=== PATIENT | female | born 1940 | race African-American/Black ===

== ENCOUNTER 2019-01-05 04:38 | Emergency (ER) | payer MEDICARE, MEDICAID ==
[2019-01-05] MEDS ORDERED: LORAZEPAM INJ 2 MG/1 ML VIAL IV ONE (08:04)
[2019-01-05 08:32] LABS: HEMATOCRIT 28.7 % (36.0-47.0); HEMOGLOBIN 9.1 g/dL (12.0-15.5); MEAN CORPUSCULAR HEMOGLOBIN 25.2 pg (27.0-33.4); MEAN CORPUSCULAR HGB CONC 31.9 g/dL (32.0-36.0); MEAN CORPUSCULAR VOLUME 79 fl (80-97); PLATELET COUNT 392 10^3/uL (150-450); RED BLOOD COUNT 3.63 10^6/uL (3.72-5.28); RED CELL DISTRIBUTION WIDTH 17.1 % (11.5-14.0); WHITE BLOOD COUNT 7.1 10^3/uL (4.0-10.5)
[2019-01-05 08:50] LABS: APPEARANCE,URINE SLIGHTLY-CLOUDY; BILIRUBIN,URINE NEGATIVE (NEGATIVE); CALCIUM OXALATE CRYSTALS,URINE MODERATE /HPF; COLOR,URINE YELLOW; GLUCOSE, URINE NEGATIVE (NEGATIVE); KETONES,URINE NEGATIVE (NEGATIVE); LEUKOCYTE ESTERASE,URINE NEGATIVE (NEGATIVE); NITRITE,URINE NEGATIVE (NEGATIVE); PROTEIN,URINE 30 mg/dL (NEGATIVE); URINE SPECIFIC GRAVITY 1.017; UROBILINOGEN,URINE NEGATIVE mg/dL (<2.0)
[2019-01-05 08:55] LABS: ALANINE AMINOTRANSFERASE 44 U/L (9-52); ALBUMIN 3.8 g/dL (3.5-5.0); ALKALINE PHOSPHATASE 193 U/L (38-126); ANION GAP 10 (5-19); ASPARTATE AMINO TRANSFERASE 38 U/L (14-36); BILIRUBIN,DIRECT 0.4 mg/dL (0.0-0.4); BILIRUBIN,TOTAL 0.4 mg/dL (0.2-1.3); BLOOD UREA NITROGEN 10 mg/dL (7-20); CALCIUM 9.1 mg/dL (8.4-10.2); CARBON DIOXIDE 25 mmol/L (22-30); CHLORIDE 107 mmol/L (98-107); CREATINE KINASE 146 U/L (30-135); GLUCOSE 97 mg/dL (75-110); LIPASE 25.3 U/L (23-300); POTASSIUM 4.3 mmol/L (3.6-5.0); SODIUM 141.8 mmol/L (137-145); TOTAL PROTEIN 6.5 g/dL (6.3-8.2)
[2019-01-05 09:03] LABS: ABSOLUTE LYMPHOCYTES# (MANUAL) 2.1 10^3/uL (0.5-4.7); ABSOLUTE MONOCYTES # (MANUAL) 0.2 10^3/uL (0.1-1.4); BAND NEUTROPHILS % (MANUAL) 2 % (3-5); BASOPHILS % (MANUAL) 0 % (0-2); EOSINOPHILS % (MANUAL) 1 % (0-6); LYMPHOCYTES % (MANUAL) 30 % (13-45); MONOCYTES % (MANUAL) 3 % (3-13); SEGMENTED NEUTROPHILS % (MAN) 64 % (42-78); TOTAL CELLS COUNTED 100
[2019-01-05 09:06] LABS: ANISOCYTOSIS 1+; PLATELET COMMENT ADEQUATE; POIKILOCYTOSIS SLIGHT; TARGET CELLS SLIGHT
[2019-01-05] MEDS ORDERED: DIPHENHYDRAMINE HCL 50 MG/ML VIAL IV ONE (10:23)
--- NOTE | 2019-01-05 11:36 | ER Document Report ---
Entered by YASMINE STUBBS SCRIBE 01/05/19 0806 Acting as scribe for:JEANETTE AYALA MD ED Extremity Problem, Lower - General Chief Complaint: Leg Pain Stated Complaint: LEG PAIN Primary Care Provider: JEANETTE MACIAS [Primary Care Provider] - Follow up as needed Notes: Patient is a 78-year-old female presenting to the emergency department complaining of pulling in her left medial thigh and leg. Patient states that she has felt "muscle pulling" in her thigh. Patient states that it is through her entire medial thigh. She reports she had a similar episode about 10 years ago and got some medication for it but does not know the name of the medicine. Patient states this episode began 3 days ago. Patient states that yesterday she did not experience much pain but it has been shaking badly and it is constant through today. The patient's daughter arrived after she had been here several hours. Her history is that the patient has pancreatic cancer, is getting chemotherapy at [facility]. The jerking shaking of the leg is something that the daughter is never witnessed before. TRAVEL OUTSIDE OF THE [place] IN LAST 30 DAYS: No - Related Data Allergies/Adverse Reactions: No Known Allergies Allergy (Unverified 01/05/19 04:40) Past Medical History - General Information source: Patient - Social History Smoking Status: Never Smoker Cigarette use (# per day): No Chew tobacco use (# tins/day): No Smoking Education Provided: No Frequency of alcohol use: Occasional Drug Abuse: None Family History: Reviewed & Not Pertinent Patient has suicidal ideation: No Patient has homicidal ideation: No - Past Medical History Cardiac Medical History: Reports: Hx Hypercholesterolemia Malignancy Medical History: Reports: Hx Pancreatic Cancer Past Surgical History: Reports: Hx Orthopedic Surgery - Back fused Review of Systems - Review of Systems Constitutional: No symptoms reported EENT: No symptoms reported Cardiovascular: No symptoms reported Respiratory: No symptoms reported Gastrointestinal: No symptoms reported Genitourinary: No symptoms reported Female Genitourinary: No symptoms reported Musculoskeletal: See HPI, Other - Thigh pain Skin: No symptoms reported Hematologic/Lymphatic: No symptoms reported Neurological/Psychological: No symptoms reported -: Yes All other systems reviewed and negative Physical Exam - Notes Notes: Physical Exam: General: Alert, jerking, jumping. HEENT: Normocephalic. Atraumatic. PERRL. Extraocular movements intact. Oropharynx clear. Neck: Supple. Non-tender. Respiratory: No respiratory distress. Clear and equal breath sounds bilaterally. Cardiovascular: Regular rate and rhythm. Abdominal: Normal Inspection. Non-tender. No distension. Normal Bowel Sounds. Back: Non-tender. No deformity or step off. Extremities: Moves all four extremities. Upper extremities: Normal inspection. Normal ROM. Lower extremities: Consistently grabbing medial thigh and both sides of her lower leg. Palpating the calf it is soft and nontender. She does seem to have tenderness to palpate along the posterior lateral thigh region, but not really tender over the medial thigh and the vascular region. No edema. Normal ROM. Neurological: Normal cognition. AAOx4. Normal speech. Psychological: Normal affect. Normal Mood. Skin: Warm. Dry. Normal color. Course - Re-evaluation Re-evalutation: 01/05/19 10:22 The patient states that the Ativan did not seem to help any. She is still jumping around rubbing her upper and lower leg repeatedly and every so often jerking her entire body. 01/05/19 13:18 The patient's daughter arrived, she states that she has never witnessed this jerking in the past, and was not present when it was occurring 10 years ago. I had a long talk with the daughter, and she would like the patient to get possibly a muscle relaxer. I told her that I think based on much of what I am seeing that there is may be a psychiatric component to this, and the daughter agrees. We will also try some Xanax. The daughter will take fall precautions and have the patient stay on the first floor of the home where they live. The d-dimer is quite high, the sed rate is high, the CRP is high, there is anemia. Although this could be explained by her pancreatic cancer and chemotherapy. According to the patient, she has had no neuro imaging so we will do a CT scan prior to discharging. - Laboratory Result Diagrams: 01/05/19 08:19 01/05/19 08:19 Laboratory results interpreted by me: 01/05/19 01/05/19 01/05/19 08:09 08:19 08:19 RBC 3.63 L Hgb 9.1 L Hct 28.7 L MCV 79 L MCH 25.2 L MCHC 31.9 L RDW 17.1 H Band Neutrophils % 2 L ESR D-Dimer 3.31 H AST 38 H Alkaline Phosphatase 193 H Creatine Kinase 146 H C-Reactive Protein Urine Protein Urine Ascorbic Acid 01/05/19 01/05/19 01/05/19 08:19 08:19 08:19 RBC Hgb Hct MCV MCH MCHC RDW Band Neutrophils % ESR 72 H D-Dimer AST Alkaline Phosphatase Creatine Kinase C-Reactive Protein 24.0 H Urine Protein 30 H Urine Ascorbic Acid 20 H - Diagnostic Test Radiology reviewed: Image reviewed, Reports reviewed - CT scan does not show any acute process. Discharge - Discharge Clinical Impression: Muscle spasm of left lower extremity Condition: Stable Disposition: HOME, SELF-CARE Additional Instructions: There is no obvious explanation for the jerking and muscle spasm you are experiencing in your left lower extremity. You be treated with a mild muscle relaxer, and a medication to help with nerves and anxiety. You should take fall precautions because we do not know how much sedation you might get from this medication. Be sure you are drinking plenty of fluids. Follow-up with your doctor Tuesday for recheck if you are not completely better. RETURN TO THE EMERGENCY ROOM IF ANY NEW OR WORSENING SYMPTOMS. Prescriptions: Alprazolam [Xanax 0.25 mg Tablet] 0.25 mg PO Q6 PRN #15 tablet PRN Reason: Cyclobenzaprine HCl [Flexeril 5 mg Tablet] 5 mg PO TID PRN #15 tablet PRN Reason: Referrals: JEANETTE MACIAS [Primary Care Provider] - Follow up as needed Scribe Attestation: 01/05/19 12:56 I personally performed the services described in the documentation, reviewed and edited the documentation which was dictated to the scribe in my presence, and it accurately records my words and actions. I personally performed the services described in the documentation, reviewed and edited the documentation which was dictated to the scribe in my presence, and it accurately records my words and actions.
--- NOTE | 2019-01-05 14:16 | RADIOLOGY REPORT (SQ) ---
EXAM DESCRIPTION: CT HEAD WITHOUT COMPLETED DATE/TIME: 01/05/2019 2:04 pm REASON FOR STUDY: Pancreatic cancer, LLE muscle jerking COMPARISON: None. TECHNIQUE: Axial images acquired through the brain without intravenous contrast. Images reviewed wi th bone, brain and subdural windows. Additional sagittal and coronal reconstructions were generated. Images stored on PACS. All CT scanners at this facility use dose modulation, iterative reconstruction, and/or weight based d osing when appropriate to reduce radiation dose to as low as reasonably achievable (ALARA). [facility]: Dose Right [facility]: CareDose [facility]: Dose Right [facility]: Teradose 4D [facility]: Satmex RADIATION DOSE: CT Rad equipment meets quality standard of care and radiation dose reduction techniq ues were employed. CTDIvol: 53.2 mGy. DLP: 884 mGy-cm.mGy. LIMITATIONS: None. FINDINGS: VENTRICLES: Prominent. CEREBRUM: No masses. No hemorrhage. No midline shift. Areas of low density in the white matter mos t likely due to chronic micro-vascular ischemic change. No evidence for acute infarction. CEREBELLUM: No masses. No hemorrhage. No alteration of density. No evidence for acute infarction. EXTRAAXIAL SPACES: Age-related involutional change. No fluid collections. No masses. ORBITS AND GLOBE: No intra- or extraconal masses. Normal contour of globe without masses. CALVARIUM: No fracture. PARANASAL SINUSES: No fluid or mucosal thickening. SOFT TISSUES: No mass or hematoma. OTHER: No other significant finding. IMPRESSION: CHRONIC CHANGES OF ATROPHY AND MICROVASCULAR ISCHEMIA. NO ACUTE PROCESS. EVIDENCE OF ACUTE STROKE: NO. TECHNICAL DOCUMENTATION: JOB ID: [id number] Quality ID # [id number]: Final reports with documentation of one or more dose reduction techniques (e.g., Au tomated exposure control, adjustment of the mA and/or kV according to patient size, use of iterative reconstruction technique) 2010 [employer]- All Rights Reserved Reading location - IP/workstation name: [email or web address]
[2019-01-05 14:32] VITALS: BP 98/50
== END 2019-01-05 14:27 | disposition home or self-care (01) ==
LOC: ER 04:38
DX: M79.605 Pain in left leg (principal); M62.838 Other muscle spasm; C25.9 Malignant neoplasm of pancreas, unspecified; E78.00 Pure hypercholesterolemia, unspecified
CPT/HCPCS: 99284; 96374; 96375; 36415; 82550; 83690; 83735; 85025; 85652; 86140; 80053; 81001; 85379; 70450; J1200; J2060